=== PATIENT | male | born 1950 | race Caucasian/White ===

== ENCOUNTER 2020-12-14 14:05 | Emergency (ER) | payer OTHER, SELFPAY ==
[2020-12-14 14:07] VITALS: BP 155/87; PULSE 64; RESP 24; TEMP 36.7; O2SAT 97; BMI 24.4
[2020-12-14 14:21] VITALS: O2SAT 95
--- NOTE | 2020-12-14 14:45 | CT_ITS ---
EXAM: CT CHEST WITHOUT INTRAVENOUS CONTRAST CLINICAL INDICATION: Trauma, fell out of truck bed landing on left side, SOB, chest pain, left shoulder pain. TECHNIQUE: Helically acquired images were obtained of the chest without intravenous contrast. This CT exam was performed using one or more of the following dose reduction techniques: automated exposure control, adjustment of the mA and/or kV according to patient size, and/or use of iterative reconstruction technique. This report was created using [employer] report generation technology. COMPARISON: None. FINDINGS: LUNGS AND PLEURAL SPACES: See below. HEART: Coronary artery and aortic calcifications are present. Heart size is normal. No pericardial effusion. MEDIASTINUM: Unremarkable. No mediastinal or hilar adenopathy. Esophagus is unremarkable. No hiatal hernia. THYROID: Unremarkable. No thyroid lesions. BONES/JOINTS: Multiple left (fifth, sixth, seventh) rib fractures with adjacent subcutaneous emphysema. No pneumothorax. No suspicious lytic or blastic abnormality. VASCULATURE: Air within the veins likely due to IV access. CT/Chest without Contrast IMPRESSION: Multiple left (fifth, sixth, seventh) rib fractures with adjacent subcutaneous emphysema. No pneumothorax. Electronically Signed: Nic Stark MD ([place]) at 15:36 EST , Service support ,
--- NOTE | 2020-12-14 14:49 | ED.DCSUM_ITS ---
- ER Visit Summary Date of Service: 12/14/20 Chief Complaint: [Fall and injury to posterior ribs] History of Present Illness: The patient is a 70 M [presents to the emergency department with a fall that happened approximately 1:40 PM. Patient states that he was standing in the back of a pickup truck when he slipped with his shoes and fell backwards onto a railroad tie used for guarding. Patient complaining of posterior left rib pain with breathing and movement. Denies any significant shortness of breath. He denies striking his head or loss of consciousness. He denies neck pain. Patient has no medical history otherwise.] Physical Examination: [HEENT-PERRLA, EOMI. Cranial nerves II through XII grossly intact. TMs clear. Mucous membranes moist. No adenopathy. No external evidence of trauma to his head. No C-spine tenderness on palpation. Cardiovascular-regular rate and rhythm without murmur or ectopy Lungs-clear to auscultation, chest wall stable without crepitus or subcu emphysema. Evaluation of the posterior left ribs reveals tenderness to palpation over the mid ribs diffusely near the midaxillary line.. There is no ecchymosis or bruising noted. No subcu emphysema noted. Abdomen-normoactive bowel sounds, soft, nontender, no rebound or rigidity, no p eritoneal signs. Extremities-intact ?4, normal range of motion, normal pulses, atraumatic] Test Results: [CBC with differential obtained was normal. Chemistries were normal. CT chest obtained showed fractures of ribs 5 6 and 7 with no evidence of pneumothorax.] Emergency Department Course and Treatment: [IV line established on arrival. Patient was medicated with 4 mg of morphine and 4 mg of Zofran. Patient was given a second dose of 4 mg of morphine.] Treatment Plan: [Patient will be discharged to home and advised not to drink alcohol with the pain medication. He will be given a prescription for [place]. Patient will be dispensed an incentive spirometer. He is advised to return if increasing shortness of breath or condition should worsen anyway.] Disposition: [Discharged home in stable condition] Impression: [Mechanical fall Left rib fractures #5, 6, and 7] This note was generated with Dash[employer] dictation software. It may contain incorrect words, spelling, and punctuation that were not noted in review of the chart prior to signing ED Disposition - Plan for ED Patient: Referrals: NOT,DEFINED [NON-STAFF] -
[2020-12-14] MEDS: Ondansetron 4 MG/2 ML Vial IV (15:00)
[2020-12-14] MEDS: Morphine 4 MG/ML Syringe IV ×2 (15:00→16:08)
[2020-12-14] MEDS: 0.9% Normal Saline 1,000 ML 150 ML IV (15:00)
[2020-12-14 15:05] VITALS: BP 118/88; PULSE 58; RESP 15; O2SAT 98
[2020-12-14 15:06] LABS: Absolute Lymphocyte Count 1.22 X10^3/uL (0.83-4.51); Absolute Neutrophil Count 8.6 X10^3/uL (2.0-7.7); Basophil# 0.04 X10^3/uL; Basophil% 0.4 % (0-1); Eosinophil# 0.09 X10^3/uL; Eosinophils% 0.9 % (0-5); Hematocrit 40.9 % (40-54); Hemoglobin 13.7 g/dL (13.0-16.5); Lymphocyte # 1.22 X10^3/ul (4.0); Lymphocyte % 11.7 % (19-41); Mean Corp Hgb Conc 33.5 g/dL (32-36); Mean Corpuscular Hgb 31.4 pg (27.0-32.0); Mean Corpuscular Volume 93.6 fL (80-94); Mean Platelet Vol. 9.7 fl (6.2-12.0); Monocyte# 0.43 X10^3/uL; Monocyte% 4.1 % (0-10); NRBC Flagged by Analyzer 0 % (0-5); Neutrophil # 8.57 X10^3/uL (2.7-7.7); Neutrophil % 82.3 % (47-70); Platelet Count 269 K/mm3 (150-450); RBC Distribution Width CV 12.3 % (11.6-14.6); RBC Distribution Width SD 42.6 fl (35.1-43.9); Red Blood Count 4.37 M/mm3 (4.6-6.2); White Blood Count 10.4 K/mm3 (4.4-11.0)
[2020-12-14 15:21] LABS: Anion Gap 8 (5-15); BUN 23 mg/dL (7-18); BUN/Creat Ratio 19.2 RATIO (10-20); Calcium,Total 8.8 mg/dL (8.5-10.1); Chloride 105 mmol/L (98-107); EST Glomerular Filtration Rate 63 mL/min (>60); Est Glom Filt Rate - Afr Amer 76 mL/min (>60); Estimated Creatinine Clearance 59.26 ml/min; Glucose 89 mg/dL (74-106); Potassium 4.5 mmol/L (3.5-5.1); Sodium Level 138 mmol/L (136-145)
--- NOTE | 2020-12-14 15:56 | ED.DEP ---
ED Disposition - Plan for ED Patient: Instructions: ED Mechanical Fall, ED Rib Fracture Prescriptions: Hydrocodone Bitart/Apap 5-325 [[place] 5MG-325MG] 1 tab PO Q4H PRN PRN 2 Days #20 tab PRN Reason: Pain Prescription Printed Referrals: NOT,DEFINED [NON-STAFF] - Bharat Mendoza MD [STAFF PHYSICIAN] - 3-5 Days
[2020-12-14 16:18] VITALS: BP 135/94; PULSE 61; RESP 15; O2SAT 97
== END 2020-12-14 16:33 | disposition home or self-care (01) ==
LOC: ED 15:13
PROVIDERS: Emergency Provider Emergency Medicine
DX: S22.42XA Multiple fractures of ribs, left side, initial encounter for closed fracture (principal); W17.89XA Other fall from one level to another, initial encounter; Y93.9 Activity, unspecified; Y92.9 Unspecified place or not applicable
CPT/HCPCS: 71250; 80048; 85025; 96361; 96374; 96375; 99283; J7030; A4216; J2405

== ENCOUNTER 2022-11-27 11:56 | Emergency (ER) | payer OTHER, SELFPAY ==
[2022-11-27 11:57] VITALS: BP 102/76; PULSE 65; RESP 18; TEMP 36.2; O2SAT 99; BMI 24.3
--- NOTE | 2022-11-27 12:33 | EDS_ITS ---
HPI History of Present Illness HPI Narrative: Patient presents with pain and swelling to his right great toe that began after a fall 5 days ago. Patient states he fell out of bed and hit his toe. Patient states his pain is worse with movement and ambulation. Patient denies any head injury or loss of consciousness. Patient denies any other injuries. Patient denies any paresthesias or weakness. Patient describes his pain as sharp, aching, and stabbing. Chief Complaint: Lower Extremity Injury Informant: patient Occured/Mechanism Mechanism/Context: Yes fall Onset/Context/Timing Onset: Days (5) Context: Sudden Onset Timing: Continuous Quality of Pain: Sharp, Aching, Burning and Stabbing Location: Right great toe Worsened by: Movement, ambulation Relieved by: Nothing Associated Symptoms Associated Symptoms: Negative for Parasthesia, Weakness or Loss of Funtion [facility] Medical History HTN (hypertension) Toe injury Home Medications enalapril maleate 10 mg tablet 10 mg PO DAILY 12/14/20 [History Last Taken Unknown] Allergy/AdvReac Type Severity Reaction Status Date / Time No Known Allergies Allergy Verified 11/27/22 11:59 Surgical History no surgical history no surgical history Social History Smoking Status: Never smoker ROS ROS ED Constitutional Constitutional ED: Denies chills or fever(s) Eyes Eyes: Denies blurry vision or change in vision ENT ENT ED: Denies rhinorrhea or sore throat Cardiovascular Cardiovascular: Denies chest pain or palpitations Respiratory/Chest Respiratory/Chest: Denies cough or dyspnea Gastrointestinal Gastrointestinal: Denies nausea or vomiting Genitourinary Genitourinary ED: Denies dysuria or hematuria Musculoskeletal Musculoskeletal: Denies back pain or neck pain Integumentary Denies abscess or rash Neurologic Neurologic: Denies headache(s) or weakness Allergic/Immunologic Allergic/Immunologic ED: Denies mouth swelling or urticaria EXAM Physical Exam Const Vital Signs: 11/27/22 11:57 Temperature 97.2 F L Temperature Source Temporal Pulse Rate 65 Respiratory Rate 18 Blood Pressure 102/76 Blood Pressure Mean 84 Pulse Ox 99 Oxygen Delivery Method Room Air Positive well nourished and well developed General Appearance ED: well developed and NAD HEENT Reports moist mucous membranes Neck full ROM and supple Extremity Extremity Narrative: There is tenderness, edema, and ecchymosis over the right great toe and distal first metatarsal. There is no obvious deformity noted. Range of motion was limited in all motions of the MP and IP joints of the right great toe secondary to pain. Sensation is intact to light touch in all digits. Capillary refills less than 2 seconds in all digits. Pedal pulses are equal bilaterally. Neuro oriented x3, CN's II-XII intact bilaterally, moves all extremities and no sensory deficits noted Sensorium / Orientation: alert Motor Exam: strength 5/5 throughout Psych mental status grossly normal Skin no wounds MDM MDM MDM Narrative Medical decision making narrative: Differential diagnosis included contusion, and fracture. We will obtain x-ray of the right foot to check for fracture. Radiography Diagnostic Testing: Clinical Impression(s) from Imaging Studies Foot X-Ray 11/27/22 12:40 IMPRESSION: 1. No acute process of the right foot. Electronically Signed: Demetrius Astudillo MD at 12:58 EST Reading Location ID and State: [facility] / [place] , Service support , X-rays of the right foot were obtained. There are 3 views. On my independent interpretation, there is no acute fracture. There is no dislocation. There is no soft tissue swelling. Radiologist also interpreted the x-rays and agrees. Treatment and Re-Evaluation Narrative: Patient was advised of his findings. Patient was instructed to ice and elevate the right foot. Patient was instructed to take Tylenol or ibuprofen as needed for pain. Patient was given a dose of Tylenol here. Patient was instructed to follow-up with his primary care physician in 5 to 7 days. Patient understood and was agreeable with the plan. All questions were answered. Discharge Plan Triage Chief Complaint: Lower Extremity Injury ED Provider: Nixon Michele Dx/Rx/DC Orders Clinical Impression: Contusion of right great toe without damage to nail, initial encounter, Fall Instructions: ED Finger or Toe Contusion Prescriptions: No Action enalapril maleate 10 MG tablet 10 mg PO DAILY [facility] Provider[facility] Referrals: [facility] [Primary Care Provider] - 5-7 Days Disposition Disposition: Home, Self Care
--- NOTE | 2022-11-27 12:40 | RAD_ITS ---
STUDY: X-RAY - RIGHT FOOT CLINICAL: Male, 72 years old. Injury/Pain TECHNIQUE: 3 view(s) of the foot. COMPARISON: None. FINDINGS: Normal talus, calcaneus, and tarsal bones. Normal visualized subtalar, talonavicular, calcaneocuboid, tarsal and tarsometatarsal articulations. Normal metatarsi. 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 Normal tibial and fibular sesamoid bones. Normal interphalangeal joint of the great toe. Normal phalanges of the great toe. Normal second through fifth metatarsophalangeal joints. The IP joints of the lesser toes are mildly narrowed with mild degenerative changes. The soft tissue structures are unremarkable. There is no demonstrated fracture. RAD/Foot min 3 Views IMPRESSION: 1. No acute process of the right foot. Electronically Signed: Demetrius Astudillo MD at 12:58 EST ,
[2022-11-27] MEDS: Acetaminophen 500 MG Tablet 1000 MG PO (13:45)
== END 2022-11-27 13:46 | disposition home or self-care (01) ==
PROVIDERS: Emergency Provider Emergency Medicine; Visit Provider Emergency Medicine
DX: S90.111A Contusion of right great toe without damage to nail, initial encounter (principal); I10 Essential (primary) hypertension; W06.XXXA Fall from bed, initial encounter
CPT/HCPCS: 73630; 99283

== ENCOUNTER 2025-03-25 21:31 | Emergency (ER) | payer OTHER, SELFPAY ==
[2025-03-25 21:32] VITALS: BP 165/103; PULSE 54; RESP 18; TEMP 36.6; O2SAT 99; BMI 23.8
--- NOTE | 2025-03-25 23:03 | CT_ITS ---
PROCEDURE: CHEST WITHOUT CONTRAST 03/25/2025 REASON FOR EXAM: LEFT RIB FRACTURES TECHNIQUE: Chest CT without contrast. Coronal and Sagittal reconstruction series were provided. One or more dose reduction techniques were used (e.g., Automated exposure control, adjustment of the mA and/or kV according to patient size, use of iterative reconstruction technique RADIATION DOSE SUMMARY: CTDlvol: 9.8 mGy DLP: 431 mGycm COMPARISON: CT chest on 12/14/2020 FINDINGS: Lymph nodes: No significant thoracic lymphadenopathy. Heart and Vasculature: No significant cardiomegaly. Moderate multivessel coronary calcifications. Mild aortic atherosclerosis. The ascending thoracic aorta measures 3.8 cm in diameter, similar to prior. Lungs and Airways: Central airways are clear. No focal consolidation. Pleura: No pleural effusion. Upper Abdomen: Subcentimeter hypodense lesion in the left kidney is too small to characterize. Aortic atherosclerosis. Otherwise unremarkable. Bones: There are healed fractures at the posterolateral aspect of the 5th through 7th left-sided ribs. No acute displaced fracture identified. CT/Chest without Contrast IMPRESSION: 1. There are several healed left-sided rib fractures. No acute displaced rib fracture. 2. Ascending thoracic aorta measures 3.8 cm in diameter, similar to CT in 2020 . 3. Moderate multivessel coronary calcifications. Reading Location: [facility]
[2025-03-25] MEDS: oxyCODONE 5 MG Tablet PO (23:14)
--- NOTE | 2025-03-26 00:22 | EDS_ITS ---
HPI History of Present Illness Chief Complaint: Fall Informant: patient and spouse/S.O. Narrative Narrative: Patient is a 74-year-old male with past medical history of hypertension. He states around 5 or 6 PM he was laying on the edge of his bed when he fell off landing on his left side on a nightstand. He denies striking his head or any loss of consciousness. He denies any history of bleeding disorder or blood thinner use. He reports pain to the left chest/rib cage region. He states he has broken ribs in the past and has concern for this once again. He states he has not noticed any type of discoloration to his urine since the fall. He states he is unable to ambulate and move all extremities without difficulty. His main concern is for potential rib fracture and with this presents for evaluation [facility] Medical History HTN (hypertension) Toe injury Home Medications ?Medication ?Instructions ?Recorded ?Last Taken ?Type enalapril maleate 10 mg tablet 10 mg PO DAILY 12/14/20 Unknown History oxycodone 5 mg tablet 5 mg PO Q6H PRN pain 5 days #20 03/26/25 Unknown Rx tabs Allergy/AdvReac Type Severity Reaction Status Date / Time No Known Allergies Allergy Verified 03/25/25 21:32 Social History Smoking Status: Never smoker ROS ROS ED Constitutional Constitutional ED: Denies chills or fever(s) Eyes Eyes: Denies blurry vision or change in vision ENT ENT ED: Denies sore throat Cardiovascular Cardiovascular: Reports chest pain and other Details: Negative syncope Respiratory/Chest Respiratory/Chest: Denies cough or dyspnea Gastrointestinal Gastrointestinal: Denies abdominal pain, diarrhea, nausea or vomiting Genitourinary Genitourinary ED: Denies dysuria or hematuria Musculoskeletal Musculoskeletal: Denies back pain or neck pain Integumentary Denies Abrasions Neurologic Neurologic: Denies headache(s), paresthesias or weakness Hematologic/Lymphatic Hematologic/Lymphatic: Denies easy bleeding or easy bruising EXAM Physical Exam Const Vital Signs: 03/25/25 21:32 03/25/25 21:39 03/26/25 00:33 Temperature 97.8 F 97.9 F Temperature Source Temporal Pulse Rate 54 L 59 L Respiratory Rate 18 18 Respiratory Effort Normal Blood Pressure 165/103 H 144/60 H Blood Pressure Mean 123 88 Pulse Ox 99 96 Oxygen Delivery Method Room Air Room Air Positive well nourished and well developed General Appearance ED: well developed; Negative for pallor HEENT HEENT Narrative: Normocephalic atraumatic No signs of depressed or basilar skull fracture Eyes PERRL and EOMs intact bilaterally General Eye ED: Negative for scleral icterus Neck supple Neck Narrative: No bony deformity or step-off of the cervical spine no midline tenderness to palpation Chest Wall Chest Narrative: There is reproducible pain with palpation along the left anterior lateral ribs regions 10-12 without obvious bony deformity or crepitance Resp normal respiratory effort and clear to auscultation bilaterally Cardio regular rhythm Rate: bradycardia and other Other Details: Bradycardic rate with regular rhythm Radial and carotid pulses are equal and symmetric GI normal to inspection, nondistended, normoactive bowel sounds, non-tender, non- distended and no masses GI Narrative: No overlying ecchymosis or soft tissue swelling noted to indicate potential liver or splenic injury Auscultation: normoactive bowel sounds Palpation: soft Back/Spine Back/Spine Narrative: No obvious bony deformity or step-off of the thoracic or lumbar spine no midline tenderness to palpation Extremity normal to inspection Extremity Narrative: Patient can move all extremities without difficulty Neuro oriented x3, CN's II-XII intact bilaterally and no sensory deficits noted Sensorium / Orientation: alert Motor Exam: strength 5/5 throughout Psych mental status grossly normal Skin no rashes or lesions noted General Skin Exam: Negative for jaundice or pallor MDM MDM MDM Narrative Medical decision making narrative: Patient presented to the ER hypertensive but has a past medical history of this. He reported a mechanical fall and therefore I felt no need for cardiac or syncope workup. He did not strike his head nor is he on blood thinners or has a history of bleeding disorder and his neurologic exam is normal so concern for traumatic subarachnoid or subdural hemorrhage or cervical compression fracture is low and there is no need for CT of the head or neck. Based on his past history of rib fractures on the left side there is concern for acute on chronic or new rib fractures. Patient could also have pneumothorax or hemothorax. Therefore I elected to perform a noncontrast CT of the chest. This revealed no lung pathology and no sign of acute fracture. Patient therefore has rib contusions but without multiple rib fractures/flail chest hemothorax or pneumothorax there is no need for further workup or intervention in the ER and he is otherwise safe for discharge. History & Record Review Discussion w/independent historian: Patient and Significant other Radiography Diagnostic Testing: Clinical Impression(s) from Imaging Studies Chest CT 03/25/25 23:03 IMPRESSION: 1. There are several healed left-sided rib fractures. No acute displaced rib fracture. 2. Ascending thoracic aorta measures 3.8 cm in diameter, similar to CT in 2020. 3. Moderate multivessel coronary calcifications. Reading Location: [id number] Discharge Plan Triage Chief Complaint: Fall ED Provider: Alfred Salgado Dx/Rx/DC Orders Clinical Impression: Contusion of rib on left side, Hypertension, Accidental fall Instructions: ED Rib Contusion or Minor Fracture Prescriptions: New oxycodone 5 mg tablet 5 mg PO Q6H PRN (Reason: pain) 5 Days Qty: 20 0RF No Action enalapril maleate 10 MG tablet 10 mg PO DAILY [facility] Provider[facility] Referrals: [facility] [Primary Care Provider] - Activity Restrictions/Additional Instructions: Your CT scan showed old left-sided rib fractures but no new rib fracture. Also there is no signs of lung trauma such as a pneumothorax/hole in the lung or bruising of the lung tissue. Continue with Tylenol and/or Motrin as well as the prescribed oxycodone for pain control. Make sure you are taking a fiber supplement to prevent constipation from the pain pill. Continue to use your incentive spirometer at least once every hour while awake for the next 7 days to prevent pneumonia. Return to the ER should you have any further concerns Print Language: Qatari Disposition Disposition: Home, Self Care Discharge Date/Time: 03/26/25 00:33
[2025-03-26] MEDS: oxyCODONE 5 MG Tablet PO (00:27)
[2025-03-26 00:33] VITALS: BP 144/60; PULSE 59; RESP 18; TEMP 36.6; O2SAT 96
== END 2025-03-26 00:33 | disposition home or self-care (01) ==
PROVIDERS: Emergency Provider Emergency Medicine; Visit Provider Emergency Medicine
DX: S20.212A Contusion of left front wall of thorax, initial encounter (principal); I10 Essential (primary) hypertension; W06.XXXA Fall from bed, initial encounter; Z79.899 Other long term (current) drug therapy
CPT/HCPCS: 71250; 99282